=== PATIENT | female | born 1935 | race Hispanic/Latino ===

== ENCOUNTER 2023-05-31 20:56 | Observation (INO) | payer OTHER, MEDICARE ==
[~2023-05-31] VITALS: Ht 152.4 cm; Wt 66.3 kg
[2023-05-31 22:30] VITALS: BP 137/68; PULSE 41; RESP 18
[2023-06-01] VITALS (19 sets, daily range): BP systolic 125–166; BP diastolic 54–107; PULSE 38–76; RESP 18–20; TEMP 97.3; O2SAT 97
[2023-06-01] MEDS ORDERED: MAGNESIUM 2GM PREMIX 50ML 50 ML IV PRN ×2 (00:30→09:00)
[2023-06-01] MEDS ORDERED: POTASSIUM CHLORIDE 20MEQ/100ML 100 ML IV PRN ×2 (00:30→09:00)
[2023-06-01] MEDS ORDERED: ONDANSETRON 4MG INJ IV PRN (00:30)
[2023-06-01] MEDS ORDERED: DEXTROSE 50%-WATER 50 ML DISP.SYRIN IV PRN (00:30)
[2023-06-01] MEDS ORDERED: GLUCAGON 1MG KIT 1 MG ML IM PRN (00:30)
[2023-06-01] MEDS ORDERED: PANT40TA54 PO (03:53)
[2023-06-01] MEDS ORDERED: METF-444 PO (03:53)
[2023-06-01] MEDS ORDERED: DOCU100C33 PO (03:53)
[2023-06-01] MEDS ORDERED: ASPI-1197 PO (03:53)
[2023-06-01] MEDS ORDERED: SIMV40TA59 PO (03:53)
[2023-06-01] MEDS ORDERED: DAPA5TAB PO (03:53)
[2023-06-01] MEDS ORDERED: LOSA100T59 PO (03:53)
[2023-06-01] MEDS ORDERED: AMLO-258 PO (03:53)
[2023-06-01] MEDS ORDERED: LEVO100C4 PO (03:53)
[2023-06-01 05:01] LABS: BASOPHILS # (AUTO) 0.07 K/uL (0.00-0.20); EOSINOPHILS # (AUTO) 0.16 K/uL (0.00-0.70); EOSINOPHILS % (AUTO) 2.4 % (0.0-8.0); HEMATOCRIT 33.3 % (36-48); IMMATURE GRANULOCYTE ABSOLUTE 0.02 K/uL (0-1); LYMPHOCYTES # (AUTO) 2.7 K/uL (1.0-4.8); LYMPHOCYTES % (AUTO) 39.3 % (21.0-51.0); MEAN CORPUSCULAR HEMOGLOBIN 30.5 pg (27.0-33.0); MEAN CORPUSCULAR VOLUME 92.2 fL (79-99); MONOCYTES # (AUTO) 0.5 K/uL (0.1-1.0); MONOCYTES % (AUTO) 7.8 % (3.0-13.0); NEUTROPHILS # (AUTO) 3.3 K/uL (1.8-7.7); NEUTROPHILS % (AUTO) 49.2 % (40.0-77.0); PLATELET COUNT (AUTO) 203 K/uL (130-400); RED BLOOD CELL COUNT(AUTO) 3.61 MIL/uL (4.00-5.50); RED CELL DISTRIBUTION WIDTH 12.8 % (11.0-15.5); WHITE BLOOD COUNT (AUTO) 6.8 K/uL (4.8-10.8)
[2023-06-01 05:20] LABS: HEMOGLOBIN A1C 7.5 % (4.0-6.0); INR < 0.93 (0.85-1.15); PROTHROMBIN TIME 10.8 SEC (9.6-11.6)
[2023-06-01 05:21] LABS: PARTIAL THROMBOPLASTIN TIME 26.9 SEC (26.3-35.5)
[2023-06-01 05:36] LABS: ALBUMIN 3.2 g/dL (3.5-5.0); BILIRUBIN,TOTAL 0.2 mg/dL (0.2-1.0); CREATININE 0.8 mg/dL (0.5-1.5); MAGNESIUM 1.6 mg/dL (1.80-2.40); POTASSIUM 4.4 mmol/L (3.5-5.1); THYROID STIMULATING HORMONE 3.67 uIU/mL (0.36-3.74); TOTAL PROTEIN, SERUM 6.8 g/dL (6.0-8.3)
[2023-06-01] MEDS: INSULIN HUMULIN R 100 UNIT/ML 3ML SQ SCH ×4 (06:57→22:04)
[2023-06-01] MEDS: FAMOTIDINE 20MG VIAL IV SCH (08:29)
[2023-06-01] MEDS ORDERED: POTASSIUM CHLORIDE 10% ELIXIR 20 MEQ/15 ML UDCUP PO PRN (09:00)
[2023-06-01] MEDS ORDERED: KCL 20 MEQ ERTAB PO PRN (09:00)
[2023-06-01] MEDS ORDERED: LIDOCAINE HCL 1% MDV 50ML VIAL ONE (12:12)
[2023-06-01] MEDS ORDERED: BUPIVACAINE/PF 0.25% 30ML VIAL IJ ONE (12:12)
[2023-06-01] MEDS ORDERED: HEPARIN 10,000 UNIT/10ML (1,000 UNIT/ML) VIAL ONE (12:13)
[2023-06-01] MEDS ORDERED: VANCOMYCIN 1G/250ML KIT 500 ML IV ONE (12:18)
[2023-06-01] MEDS ORDERED: MIDAZOLAM HCL 1 MG/ML 2ML VIAL ONE ×2 (12:29→12:46)
[2023-06-01] MEDS ORDERED: MEPERIDINE-PF 25 MG/ML SYG ONE ×2 (12:29→12:46)
[2023-06-01] MEDS ORDERED: ACETAMINOPHEN 500 MG TABLET PO PRN (13:30)
[2023-06-01] MEDS ORDERED: ACETAMINOPHEN WITH CODEINE 1 TAB TAB PO PRN (13:30)
[2023-06-01] MEDS ORDERED: AMLODIPINE 5 MG TAB PO ONE (14:00)
[2023-06-01] MEDS ORDERED: SIMVASTATIN 20 MG TABLET PO SCH (21:00)
[2023-06-01] MEDS ORDERED: NON-FORMULARY MEDICATION 1 EACH (Simvastatin (Zocor) 40 MG) PO SCH (21:00)
[2023-06-01] MEDS: METFORMIN HCL 500 MG TABLET PO SCH (22:01)
[2023-06-01] MEDS: DOCUSATE SODIUM 100 MG CAP PO SCH (22:01)
[2023-06-02 03:11] VITALS: BP 174/84; PULSE 71; RESP 20
[2023-06-02 04:16] LABS: BASOPHILS # (AUTO) 0.06 K/uL (0.00-0.20); BASOPHILS % (AUTO) 0.8 % (0.0-5.0); EOSINOPHILS # (AUTO) 0.14 K/uL (0.00-0.70); EOSINOPHILS % (AUTO) 1.9 % (0.0-8.0); HEMATOCRIT 34.4 % (36-48); IMMATURE GRANULOCYTE ABSOLUTE 0.04 K/uL (0-1); LYMPHOCYTES # (AUTO) 2.2 K/uL (1.0-4.8); MEAN CORPUSCULAR HEMOGLOBIN 29.8 pg (27.0-33.0); MEAN CORPUSCULAR HGB CONC 32.3 g/dL (32.0-36.0); MEAN CORPUSCULAR VOLUME 92.5 fL (79-99); MONOCYTES # (AUTO) 0.5 K/uL (0.1-1.0); MONOCYTES % (AUTO) 7.1 % (3.0-13.0); NEUTROPHILS # (AUTO) 4.3 K/uL (1.8-7.7); NEUTROPHILS % (AUTO) 59.6 % (40.0-77.0); PLATELET COUNT (AUTO) 197 K/uL (130-400); RED BLOOD CELL COUNT(AUTO) 3.72 MIL/uL (4.00-5.50); RED CELL DISTRIBUTION WIDTH 12.6 % (11.0-15.5); WHITE BLOOD COUNT (AUTO) 7.2 K/uL (4.8-10.8)
[2023-06-02 04:31] LABS: CREATININE 0.8 mg/dL (0.5-1.5); MAGNESIUM 1.8 mg/dL (1.80-2.40); PHOSPHORUS 3.9 mg/dL (2.5-4.9); POTASSIUM 4.2 mmol/L (3.5-5.1)
[2023-06-02] MEDS ORDERED: LEVOTHYROXINE 100 MCG TABLET PO SCH (06:30)
[2023-06-02 07:00] VITALS: BP 161/80; PULSE 71; RESP 18
[2023-06-02] MEDS: INSULIN HUMULIN R 100 UNIT/ML 3ML SQ SCH ×2 (07:30→11:30)
[2023-06-02] MEDS ORDERED: NON-FORMULARY MEDICATION 1 EACH (Levothyroxine Sodium (Levothyroxine) 100 MCG) PO SCH (07:30)
[2023-06-02] MEDS: FAMOTIDINE 20MG VIAL IV SCH (08:40)
[2023-06-02] MEDS: METFORMIN HCL 500 MG TABLET PO SCH (08:41)
[2023-06-02] MEDS: DOCUSATE SODIUM 100 MG CAP PO SCH (08:42)
[2023-06-02] MEDS ORDERED: (Dapagliflozin Propanediol (Farxiga) 5 MG) PO SCH (09:00)
[2023-06-02] MEDS ORDERED: AMLODIPINE 5 MG TAB PO SCH (09:00)
[2023-06-02] MEDS ORDERED: PANTOPRAZOLE 40 MG TAB DR PO SCH (09:00)
[2023-06-02] MEDS ORDERED: ASPIRIN 81MG CHEW TAB PO SCH (09:00)
[2023-06-02] MEDS ORDERED: LOSARTAN 100 MG TABLET PO SCH (09:00)
[2023-06-02] MEDS ORDERED: NON-FORMULARY MEDICATION 1 EACH (Amlodipine Besylate 10 MG) PO SCH (09:00)
[2023-06-02 11:00] VITALS: BP 153/79; PULSE 77; RESP 18
== END 2023-06-02 12:35 | disposition home or self-care (01) ==
LOC: EDH 20:56 → 2AH 20:57
PROVIDERS: ADMIT Hospitalist; ATTEND Hospitalist
DX: I44.2 Atrioventricular block, complete (principal); R00.1 Bradycardia, unspecified; I10 Essential (primary) hypertension; E03.9 Hypothyroidism, unspecified; E11.9 Type 2 diabetes mellitus without complications; I44.1 Atrioventricular block, second degree; E78.5 Hyperlipidemia, unspecified; R60.0 Localized edema; F31.9 Bipolar disorder, unspecified; Z90.710 Acquired absence of both cervix and uterus; Z90.89 Acquired absence of other organs; Z88.0 Allergy status to penicillin; Z88.6 Allergy status to analgesic agent; Z95.0 Presence of cardiac pacemaker; Z79.84 Long term (current) use of oral hypoglycemic drugs; Z79.82 Long term (current) use of aspirin
CPT/HCPCS: 82948 ×7; 33208; 96374; 96375; 83036; 84443; 83735 ×2; 80061; 80053; 85025 ×2; 85610; 85730; 36415 ×2; 71045 ×2; 93308; 93005; 96376; 84100; 80048; G0378 ×35; C1785; C1898 ×2; J3475; J3490 ×3; J0665; J1644; J2250; J3370; J2175; J1815; 99156; 99157